=== PATIENT | male | born 1995 | race Caucasian/White ===

== ENCOUNTER 2017-08-08 14:56 | Emergency (ER) | payer OTHER ==
[2017-08-08 15:29] VITALS: BP 116/80
--- NOTE | 2017-08-08 15:37 | UC ---
Throat Pain/Nasal Rosalino HPI - HPI Summary HPI Summary: 22M presents with sore throat for 3 days. He states he was seen by ayan and was told has pharyngitis and was placed on PCN. He states that they told him to follow up in 3 days. He states that pain has gotten better and now worst. He admits to pain with swallowing but is still able to do so. He denies any SOB or chest pain. He denies any abdominal pain, fatigue, nausea or vomiting. - History of Current Complaint Chief Complaint: UCGeneralIllness Stated Complaint: THROAT/NASAL COMPLAINT Time Seen by Provider: 08/08/17 15:23 Pain Intensity: 5 - Allergies/Home Medications Allergies/Adverse Reactions: Allergies Allergy/AdvReac Type Severity Reaction Status Date / Time Clarithromycin [From Biaxin] Allergy Rash Verified 08/08/17 15:21 Home Medications: Home Medications Penicillin VK 500 MG TAB(NF) [Penicillin VK 500 mg Tab] 500 mg PO BID 08/08/17 [ History Confirmed 08/08/17] PMH/Surg Hx/FS Hx/Imm Hx Endocrine History: Other Other Endocrine History: no DM Respiratory History: Other Other Respiratory History: no asthma - Surgical History Surgical History: None - Family History Known Family History: Negative: Respiratory Disease - Social History Alcohol Use: Rare Substance Use Type: None Smoking Status (MU): Never Smoked Tobacco Review of Systems Constitutional: Negative ENT: Sore Throat Respiratory: Cough All Other Systems Reviewed And Are Negative: Yes Physical Exam Triage Information Reviewed: Yes Appearance: Well-Appearing Vital Signs: Initial Vital Signs Temp 99 F 08/08/17 15:22 Pulse 109 08/08/17 15:22 Resp 16 08/08/17 15:22 BP 116/80 08/08/17 15:22 Pulse Ox 100 08/08/17 15:22 Vital Signs Reviewed: Yes Eyes: Positive: Conjunctiva Clear ENT: Positive: Normal ENT inspection, Pharyngeal erythema, TMs normal, Tonsillar swelling - +@, Uvula midline, Other - soft palate symmetric. Negative : Tonsillar exudate, Trismus, Muffled voice Neck: Positive: Supple, Nontender, No Lymphadenopathy Respiratory: Positive: Lungs clear, Normal breath sounds Cardiovascular: Positive: RRR Abdomen Description: Positive: Nontender, Soft Bowel Sounds: Positive: Present Musculoskeletal Exam: Normal Neurological Exam: Normal Psychological Exam: Normal Skin Exam: Normal Throat Pain/Nasal Course/Dx - Course Course Of Treatment: 22M presents with sore throat for 3 days. He states he was seen by ayan and was told has pharyngitis and was placed on PCN. He states that they told him to follow up in 3 days. He states that pain has gotten better and now worst. He admits to pain with swallowing but is still able to do so. He denies any SOB or chest pain. He denies any abdominal pain, fatigue, nausea or vomiting. on exam tonsils+2, uvula midline, soft palate symmetric. no lymphadenopathy. discussed will add decadron. told that do not have strep results so do not know is should continue antibiotic or not. patient understand and agrees with plan. - Differential Dx/Diagnosis Differential Diagnosis/HQI/PQRI: Pharyngitis, Tonsillitis, URI Provider Diagnoses: pharynigitis Discharge - Discharge Plan Condition: Good Disposition: HOME Prescriptions: Dexamethasone TAB* [Decadron TAB*] 4 mg PO DAILY #5 tab Patient Education Materials: Pharyngitis (ED) Forms: *Work Release Referrals: [facility] [place] [facility] [Outside] Additional Instructions: Take steroid once a day for 5 days Take Tylenol or ibuprofen for pain every 6 hours Use saline spray in nose as much as needed for nasal congestion Use humidifier in room or can use warm water in bowls for cough Can gargle salt water Can use cough drops or products such as cloraseptic spray Establish care with primary care physician Return to ED if develop fever does not respond to Tylenol or ibuprofen, inability to swallow, difficulty breathing or any new or worsening symptoms
== END 2017-08-08 15:42 | disposition home or self-care (01) ==
LOC: UCCORT 14:56
DX: J02.9 Acute pharyngitis, unspecified (principal); R05 Cough; Z88.1 Allergy status to other antibiotic agents
CPT/HCPCS: 99202; G0463

== ENCOUNTER 2018-01-22 07:08 | Emergency (ER) | payer OTHER ==
[2018-01-22 07:39] VITALS: BP 134/83
--- NOTE | 2018-01-22 07:54 | UC ---
Complaint Male HPI - HPI Summary HPI Summary: Epigastric pain, gerd, diarrhea for about 2-3 days. No fever,melena, hematochezia, vomiting. There is nausea. No prior abd surgeries and no fever. He is able to eat and drink. - History of Current Complaint Chief Complaint: UCGI Stated Complaint: ACID REFLUX Time Seen by Provider: 01/22/18 07:42 Hx Obtained From: Patient Onset/Duration: Gradual Onset, Lasting Days Timing: Lasting Days Severity Initially: Moderate Severity Currently: Moderate Pain Intensity: 5 Location: Other - epigastric. Character: Burning Aggravating Factor(s): Palpation Alleviating Factor(s): Nothing Associated Signs And Symptoms: Positive: Nausea. Negative: Diaphoresis, Back Pain, Fever, Hematuria, Dysuria, Constipation, Blood in Stool, Rectal Pain, Vomiting(# Of Episodes =), Penile Swelling, Penile Discharge - Allergies/Home Medications Allergies/Adverse Reactions: Allergies Allergy/AdvReac Type Severity Reaction Status Date / Time clarithromycin Allergy Rash Verified 01/22/18 07:40 PMH/Surg Hx/FS Hx/Imm Hx Previously Healthy: No - GERD - Surgical History Surgical History: None - Family History Known Family History: Negative: Respiratory Disease - Social History Occupation: Employed Full-time Alcohol Use: Rare Substance Use Type: None Smoking Status (MU): Never Smoked Tobacco Review of Systems Gastrointestinal: Abdominal Pain, Diarrhea, Nausea All Other Systems Reviewed And Are Negative: Yes Physical Exam Triage Information Reviewed: Yes Appearance: Well-Appearing, No Pain Distress, Well-Nourished Vital Signs: Initial Vital Signs Temp 98.7 F 01/22/18 07:32 Pulse 74 01/22/18 07:32 Resp 18 01/22/18 07:32 BP 134/83 01/22/18 07:32 Pulse Ox 100 01/22/18 07:32 Vital Signs Reviewed: Yes Eyes: Positive: Conjunctiva Clear ENT: Positive: Normal ENT inspection, Pharynx normal. Negative: Pharyngeal erythema, Nasal congestion, Nasal drainage, Trismus Neck: Positive: Supple, Nontender, No Lymphadenopathy Respiratory: Positive: Lungs clear, Normal breath sounds, No respiratory distress, No accessory muscle use. Negative: Respiratory distress, Decreased breath sounds, Accessory muscle use, Crackles, Rhonchi, Stridor, Wheezing Cardiovascular: Positive: No Murmur, Pulses Normal, Brisk Capillary Refill Abdomen Description: Positive: No Organomegaly, Soft, Other: - epigastric tenderness without guarding. Neg mcdaniel's.. Negative: Distended, Guarding Musculoskeletal: Positive: Strength Intact, ROM Intact, No Edema Neurological: Positive: Alert, Muscle Tone Normal. Negative: Fatigued Psychological: Positive: Age Appropriate Behavior Skin: Negative: rashes Complaint Male Course/Dx - Course Course Of Treatment: exam and vitals wnl. No worrisome features such as bleeding , guarding, fever. PUD, serious abd infection, gall bladder disease considered. - Differential Dx/Diagnosis Provider Diagnoses: diarrhea. dyspepsia Discharge - Sign-Out/Discharge Documenting (check all that apply): Patient Departure - Discharge Plan Condition: Good Disposition: HOME Prescriptions: Metoclopramide TAB* [Reglan TAB*] 10 mg PO Q8H #12 tab Ranitidine TAB (NF) [Zantac TAB (NF)] 150 mg PO BID #30 tab Patient Education Materials: Gastroesophageal Reflux Disease (ED), Acute Diarrhea (ED) Forms: *Work Release Referrals: No Primary Care Phys,NOPCP [Primary Care Provider] - Additional Instructions: Return as we discussed if symptoms worsen. - Billing Disposition and Condition Condition: GOOD Disposition: Home
== END 2018-01-22 07:54 | disposition home or self-care (01) ==
LOC: UCCORT 07:08
DX: R19.7 Diarrhea, unspecified (principal); R10.13 Epigastric pain; R11.0 Nausea; Z88.1 Allergy status to other antibiotic agents
CPT/HCPCS: 99212; G0463

== ENCOUNTER 2018-07-17 11:15 | Emergency (ER) | payer OTHER ==
[2018-07-17 12:57] VITALS: BP 126/88
--- NOTE | 2018-07-17 13:38 | UC ---
Respiratory Complaint HPI - HPI Summary HPI Summary: 4 day hx of cough, nasal congestion , fever/chills. 2 sick contacts at home. did not get flu shot this year. - History of Current Complaint Chief Complaint: UCRespiratory Stated Complaint: SINUSES, COUGH Time Seen by Provider: 07/17/18 12:57 Hx Obtained From: Patient Onset/Duration: Gradual Onset Pain Intensity: 3 Pain Scale Used: 0-10 Numeric Associated Signs And Symptoms: Positive: Fever, Chills, Nasal Congestion, Sinus Discomfort. Negative: Dyspnea, Wheezing - Allergies/Home Medications Allergies/Adverse Reactions: Allergies Allergy/AdvReac Type Severity Reaction Status Date / Time clarithromycin Allergy Rash Verified 07/17/18 12:55 PMH/Surg Hx/FS Hx/Imm Hx Previously Healthy: Yes - Surgical History Surgical History: None - Family History Known Family History: Negative: Respiratory Disease - Social History Alcohol Use: Occasionally Substance Use Type: None Smoking Status (MU): Never Smoked Tobacco Review of Systems All Other Systems Reviewed And Are Negative: Yes Constitutional: Positive: Chills, Fatigue. Negative: Fever Skin: Negative: Rash Eyes: Positive: Negative ENT: Positive: Sinus Congestion. Negative: Sore Throat, Ear Ache, Nasal Discharge Respiratory: Positive: Cough - productive Cardiovascular: Positive: Negative Musculoskeletal: Positive: Myalgia Neurological: Positive: Headache Physical Exam Triage Information Reviewed: Yes Appearance: Well-Appearing, Other: - smells like smoke, does not smoke. Vital Signs: Initial Vital Signs Temp 98.6 F 07/17/18 12:55 Pulse 122 07/17/18 12:55 Resp 16 07/17/18 12:55 BP 126/88 07/17/18 12:55 Pulse Ox 100 07/17/18 12:55 Vital Signs Reviewed: Yes ENT: Positive: Pharynx normal, TMs normal Neck: Positive: Supple, Nontender, No Lymphadenopathy Respiratory Exam: Normal Cardiovascular Exam: Normal Cardiovascular: Positive: Tachycardia - rechecked pulse during exam 98 Neurological: Positive: Alert Skin: Negative: Rashes UC Diagnostic Evaluation - Laboratory O2 Sat by Pulse Oximetry: 100 Respiratory Course/Dx - Course Course Of Treatment: Acute cough assoc. w/ chills, fatigue in a pt. who did not get flu shot. rapid flu neg. No resp. distress. Advised to go to ED should this worsen. Of note does get 2nd hand smoke exposure from mom at home. Vitals good but slightly tachycardic. Recheck was NL. - Differential Dx/Diagnosis Differential Diagnosis/HQI/PQRI: Influenza, Lower Resp Infection Provider Diagnosis: Flu-like symptoms Discharge - Sign-Out/Discharge Documenting (check all that apply): Patient Departure All imaging exams completed and their final reports reviewed: No Studies - Discharge Plan Condition: Good Disposition: HOME Prescriptions: Benzonatate CAP* [Tessalon 100 MG CAP*] 100 mg PO TID 5 Days #15 cap Patient Education Materials: Acute Bronchitis (ED) Forms: *Work Release Referrals: No Primary Care Phys,NOPCP [Primary Care Provider] - Additional Instructions: YOu do not have the flu and you do not have pneumonia. But you do have a virus causing inflammation of the large tubes in your lungs which is called bronchitis. There are no medications that treat viruses but we can at least treat your cough. - Billing Disposition and Condition Condition: GOOD Disposition: Home
== END 2018-07-17 14:30 | disposition home or self-care (01) ==
LOC: UCCORT 11:15
DX: R05 Cough (principal); R68.83 Chills (without fever); R53.83 Other fatigue; Z88.1 Allergy status to other antibiotic agents; Z77.22 Contact with and (suspected) exposure to environmental tobacco smoke (acute) (chronic)
CPT/HCPCS: 99212; G0463

== ENCOUNTER 2019-04-27 13:40 | Emergency (ER) | payer OTHER ==
[2019-04-27 14:38] VITALS: BP 124/76
--- NOTE | 2019-04-27 14:41 | UC ---
FLU HPI - HPI Summary HPI Summary: Patient is a 24yo male presenting with URI symptoms x4 days. Notes nasal congestion, ear pressure, postnasal drip. Notes mild headache and body aches. Denies sinus tenderness. Denies cough and sore throat. Denies shortness of breath and wheezing. Denies nausea, vomiting, diarrhea. Denies fever and chills. - History of Current Complaint Chief Complaint: UCGeneralIllness Stated Complaint: SINUSES,CONGESTION Hx Obtained From: Patient Onset/Duration: Gradual Onset, Lasting Days Pain Intensity: 0 - Allergy/Home Medications Allergies/Adverse Reactions: Allergies Allergy/AdvReac Type Severity Reaction Status Date / Time clarithromycin Allergy Rash Verified 04/27/19 14:38 PMH/Surg Hx/FS Hx/Imm Hx Previously Healthy: Yes - Surgical History Surgical History: Yes Surgery Procedure, Year, and Place: cleft lip - Family History Known Family History: Positive: Non-Contributory Negative: Respiratory Disease - Social History Alcohol Use: Occasionally Substance Use Type: Marijuana Substance Use Comment - Amount & Last Used: occasionally Smoking Status (MU): Never Smoked Tobacco Review of Systems All Other Systems Reviewed And Are Negative: Yes Constitutional: Positive: Negative. Negative: Fever, Chills Eyes: Positive: Negative ENT: Positive: Ear Ache, Nasal Discharge, Sinus Congestion. Negative: Sore Throat, Sinus Pain/Tenderness Respiratory: Positive: Negative. Negative: Shortness Of Breath, Cough Cardiovascular: Positive: Negative. Negative: Palpitations, Chest Pain Gastrointestinal: Positive: Negative. Negative: Abdominal Pain, Vomiting, Diarrhea, Nausea Musculoskeletal: Positive: Negative. Negative: Arthralgia, Myalgia Neurological: Positive: Headache Physical Exam Triage Information Reviewed: Yes Appearance: Well-Appearing, No Pain Distress, Well-Nourished Vital Signs: Initial Vital Signs Temp 99 F 04/27/19 14:34 Pulse 113 04/27/19 14:34 Resp 18 04/27/19 14:34 BP 124/76 04/27/19 14:34 Pulse Ox 100 04/27/19 14:34 Vital Signs Reviewed: Yes Eyes: Positive: Conjunctiva Clear ENT: Positive: Hearing grossly normal, Pharynx normal, Nasal congestion, Nasal drainage, TMs normal, Uvula midline. Negative: Pharyngeal erythema, TM bulging , TM dull, TM red, Tonsillar swelling, Tonsillar exudate, Sinus tenderness Neck exam: Normal Neck: Positive: Supple, Nontender, No Lymphadenopathy Respiratory Exam: Normal Respiratory: Positive: Chest non-tender, Normal breath sounds, No respiratory distress, No accessory muscle use Cardiovascular Exam: Other - regular rhythm Cardiovascular: Positive: Tachycardia Neurological: Positive: Alert Psychological: Positive: Age Appropriate Behavior Flu Course/Dx - Course Course Of Treatment: Instructed the patient to take Mucinex D as prescribed for treatment of nasal congestion. Told to use [id number] nasal sprays as directed for symptomatic relief. Instructed him to follow up with the [facility] or physician referral as listed below if symptoms persist. Patient voiced understanding and agreed to treatment plan. - Differential Dx/Diagnosis Provider Diagnosis: Viral upper respiratory infection Discharge ED - Sign-Out/Discharge Documenting (check all that apply): Patient Departure All imaging exams completed and their final reports reviewed: No Studies - Discharge Plan Condition: Stable Disposition: HOME Prescriptions: Guaifenesin/Pseudoephedrne HCl [Mucinex D] 1 tab PO BID PRN #10 tab PRN Reason: Congestion Patient Education Materials: Upper Respiratory Infection (ED) Forms: *Work Release Referrals: [facility] [place] [facility] [Outside] - If Needed [facility] [Outside] - If Needed Additional Instructions: You may take Mucinex D as prescribed for your congestion. You may use an over the counter nasal spray, like flonase, as directed for symptomatic relief. You may take ibuprofen as directed for pain relief. Get plenty of rest and fluids. Follow-up with the [facility] or physician referral as listed below if your symptoms worsen or do not resolve within 7 days. - Billing Disposition and Condition Condition: STABLE Disposition: Home - Attestation Statements Provider Attestation: I was available for consult. This patient was seen by the ARNOLDO. The patient was not presented to, seen by, or examined by me. -Alvaro
== END 2019-04-27 14:57 | disposition home or self-care (01) ==
LOC: UCCORT 13:40
DX: J06.9 Acute upper respiratory infection, unspecified (principal)
CPT/HCPCS: 99212; G0463

== ENCOUNTER 2019-09-30 14:09 | Emergency (ER) | payer OTHER ==
[2019-09-30 15:07] VITALS: BP 125/76
--- NOTE | 2019-09-30 15:20 | UC ---
Throat Pain/Nasal Rosalino HPI - HPI Summary HPI Summary: 24-year-old male with sore throat for 1 day. He states he has had diarrhea over the past 4 days however the past 24 hours he's had diarrhea twice which he describes as not watery. He denies any fever or chills. No vomiting. He has city water. His mother, with whom he lives, has upper respiratory illness symptoms but no GI symptoms. He states occasionally he will have abdominal pain however he is pain-free here. - History of Current Complaint Chief Complaint: UCGeneralIllness Stated Complaint: CHILLS,ST,SINUSES Time Seen by Provider: 09/30/19 15:04 Hx Obtained From: Patient Onset/Duration: Gradual Onset Severity: Mild Pain Intensity: 2 Cough: None Associated Signs & Symptoms: Positive: Negative - Allergies/Home Medications Allergies/Adverse Reactions: Allergies Allergy/AdvReac Type Severity Reaction Status Date / Time clarithromycin Allergy Rash Verified 04/27/19 14:38 Home Medications: Home Medications NK [No Home Medications Reported] 09/30/19 [History Confirmed 09/30/19] PMH/Surg Hx/FS Hx/Imm Hx Previously Healthy: Yes GI/ History: Gastroesophageal Reflux - Surgical History Surgical History: Yes Surgery Procedure, Year, and Place: cleft lip - Family History Known Family History: Positive: Non-Contributory Negative: Respiratory Disease - Social History Occupation: Employed Full-time Lives: With Family Alcohol Use: Occasionally Substance Use Type: Marijuana Substance Use Comment - Amount & Last Used: rarely Smoking Status (MU): Never Smoked Tobacco Review of Systems All Other Systems Reviewed And Are Negative: Yes ENT: Positive: Sore Throat Gastrointestinal: Positive: Abdominal Pain - Patient has had intermittent abdominal pain however he is pain-free here., Diarrhea - Patient states he's had diarrhea over the past 4 days however only 2 times in the past 24 hours and he describes it as not watery., Nausea - Mild nausea but no vomiting. Is Patient Immunocompromised?: No Physical Exam Triage Information Reviewed: Yes Appearance: Well-Appearing, No Pain Distress, Well-Nourished Vital Signs: Initial Vital Signs Temp 98.5 F 09/30/19 15:02 Pulse 90 09/30/19 15:02 Resp 17 09/30/19 15:02 BP 125/76 09/30/19 15:02 Pulse Ox 100 09/30/19 15:02 Vital Signs Reviewed: Yes Eyes: Positive: Conjunctiva Clear ENT: Positive: Pharyngeal erythema - Very minimal pharyngeal erythema., TMs normal. Negative: Tonsillar swelling, Tonsillar exudate, Trismus, Muffled voice , Hoarse voice, Uvula midline Neck: Positive: Supple, Nontender, No Lymphadenopathy Respiratory: Positive: Lungs clear, Normal breath sounds, No respiratory distress, No accessory muscle use Cardiovascular: Positive: RRR, No Murmur, Pulses Normal, Brisk Capillary Refill Abdomen Description: Positive: Nontender, No Organomegaly, Soft. Negative: CVA Tenderness (R), CVA Tenderness (L), Distended, Guarding, Hepatomegaly, Splenomegaly Bowel Sounds: Positive: Present Musculoskeletal Exam: Normal Neurological Exam: Normal Psychological Exam: Normal Skin Exam: Normal Throat Pain/Nasal Course/Dx - Course Course Of Treatment: Rapid Strep test: Negative At this point in time I feel this is a viral illness. The diarrhea is improving and the patient is pain-free today. If he has any recurrence of the abdominal pain or worsening of symptoms he needs go the ER for evaluation. - Differential Dx/Diagnosis Provider Diagnosis: Pharyngitis Discharge ED - Sign-Out/Discharge Documenting (check all that apply): Patient Departure All imaging exams completed and their final reports reviewed: No Studies - Discharge Plan Condition: Good Disposition: HOME Patient Education Materials: Pharyngitis (ED) Forms: *Work Release Referrals: [facility] [Outside] No Primary Care Phys,NOPCP [Primary Care Provider] - Additional Instructions: Increase fluids, increase bananas, yogurt and cheese in your diet and that will help your stools be more formed. Follow-up in the emergency room if you develop worsening abdominal pain. - Billing Disposition and Condition Condition: GOOD Disposition: Home
== END 2019-09-30 15:41 | disposition home or self-care (01) ==
LOC: UCCORT 14:09
DX: J02.9 Acute pharyngitis, unspecified (principal); R19.7 Diarrhea, unspecified; R10.9 Unspecified abdominal pain; Z88.1 Allergy status to other antibiotic agents
CPT/HCPCS: 87651; 99211; G0463